=== PATIENT | male | born 1945 | race Caucasian/White ===

== ENCOUNTER 2017-11-12 07:22 | Day surgery (SDC) | payer MEDICARE, BC ==
[~2017-11-12] VITALS: Ht 167.6 cm; Wt 73.5 kg
--- NOTE | ~2017-11-12 | OP ---
PATIENT NAME: FARHEEN WOODS MEDICAL RECORD: [id number] :45 LOCATION:D[facility] ADMISSION DATE: SURGEON: MARS MCINTOSH MD DATE OF OPERATION: 11/12/2017 SURGEON: Mars Mcintosh MD ANESTHESIA: MAC by Fermin Fuentes CRNA. PREOPERATIVE DIAGNOSIS: Elevated PSA 6.75 on 08/19/2017. PROCEDURE: Transrectal ultrasound and prostate biopsy. FINDINGS: A 79 gram prostate, hypoechoic area in the mid basilar area anteriorly. SPECIMENS: Prostate biopsy cores. BLOOD LOSS: None. CLINICAL HISTORY: This is a 72-year-old male, who was referred with an elevated PSA of 6.75. This was a specimen from 08/19/2017. His PSA has been elevated above 4 for the past 3 years. His daughter has been trying with herbal medications to dock the PSA level on her own. Finally, he got too concerned about cancer and he sought medical attention. His brother had prostate cancer diagnosed at age 50. He comes today for a prostate transrectal ultrasound and biopsy. He is allergic to PENICILLIN. 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 DESCRIPTION OF PROCEDURE: The patient was given IV sedation. He was placed in the dorsal lithotomy position and prepped and draped. The transrectal ultrasound probe was introduced and the prostate size measurements were obtained at 79 grams. There was a hypoechoic area in the base of the prostate located anteriorly. We performed sextant biopsies with at least 3 cores from each sextant. Once all the specimens were obtained, the procedure was terminated. The patient was brought back to the preoperative holding area. I will review the pathology results with him next week. TRANSINT:[id number] Voice Confirmation ID: [id number] DOCUMENT ID: [id number] MARS MCINTOSH MD at 1547 CC: [id number] DICTATION DATE: 11/12/17 1119 PROPERTY MANAGEMENT SPECIALIST: 11/12/17 1410 [facility] 11/12/17 [place] [address]
[~2017-11-12 07:22] MED LIST: PRINIVIL20 MG PO
[2017-11-12 07:43] LABS: HEMATOCRIT 43.6 % (42.0-54.0); HEMOGLOBIN 15.5 g/dL (13.5-17.5); MCH 32.2 pg (26.0-34.0); MCHC 35.6 g/dL (31.0-37.0); MCV 90.6 fL (80.0-100.0); MEAN PLATELET VOLUME 8.8 fL (7.4-10.4); RBC 4.81 10x6/uL (4.20-6.10); RDW 12.4 % (11.5-14.5); WBC 5.8 10x3/uL (4.8-10.8)
[2017-11-12 08:42] VITALS: BP 136/76; Ht 167.6 cm; Wt 73.5 kg
== END 2017-11-12 12:45 | disposition home or self-care (01) ==
LOC: D.OPS 07:22 → D.PAN 09:45 → D.OPS 12:45
PROVIDERS: Anesthesiology
DX: R97.20 Elevated prostate specific antigen [PSA] (principal); Z01.812 Encounter for preprocedural laboratory examination

== ENCOUNTER 2019-06-08 21:44 | Inpatient (IN) | payer MEDICARE, BC ==
[~2019-06-08] VITALS: Ht 167.6 cm; Wt 69.9 kg
--- NOTE | 2019-06-08 22:27 | NUR ---
URINE SENT TO LAB
[2019-06-08 22:30] LABS: BASOPHILS 0.2 % (0-2); EOSINOPHILS 1.1 % (0-7); HEMATOCRIT 37.8 % (42.0-54.0); HEMOGLOBIN 12.9 g/dL (13.5-17.5); IMMATURE GRANULOCYTES 0.3 % (0-5); LYMPHOCYTES 21.9 % (15-50); MCH 30.1 pg (26.0-34.0); MCHC 34.1 g/dL (31.0-37.0); MCV 88.1 fL (80.0-100.0); MEAN PLATELET VOLUME 8.4 fL (7.4-10.4); MONOCYTES 7.7 % (2-11); NEUTROPHILS 68.8 % (40-80); RBC 4.29 10x6/uL (4.20-6.10); RDW 12.7 % (11.5-14.5); WBC 9.2 10x3/uL (4.8-10.8)
[2019-06-08 22:31] LABS: APPEARANCE CLEAR (CLEAR); COLOR YELLOW (YELLOW); NITRITE NEGATIVE (NEGATIVE); PROTEIN NEGATIVE (NEGATIVE); SPECIFIC GRAVITY 1.015 (1.005-1.020)
[2019-06-08 22:31] LABS: PLATELET COUNT 214 10x3/uL (130-400)
[2019-06-08 22:32] LABS: BILIRUBIN NEGATIVE (NEGATIVE); GLUCOSE NEGATIVE (NEGATIVE); KETONE NEGATIVE (NEGATIVE); UROBILINOGEN NORMAL (NORMAL)
[2019-06-08 22:35] LABS: ANION GAP 16.1 mmol/L (8-16); CALCIUM 8.4 mg/dL (8.5-10.1); CARBON DIOXIDE 23.4 mmol/L (21.0-32.0); CREATININE - SERUM 6.3 mg/dL (0.6-1.3); POTASSIUM - SERUM 4.5 mmol/L (3.5-5.1)
[2019-06-08 22:41] LABS: ALBUMIN 3.5 g/dL (3.4-5.0); BILIRUBIN - TOTAL 0.33 mg/dL (0.2-1.3); PROTEIN - SERUM 6.7 g/dL (6.4-8.2)
--- NOTE | 2019-06-08 23:43 | NUR ---
REPORT CALLED TO STONEY TILLMAN
[2019-06-08] MEDS ORDERED: ZOFRAN4 MG PO (23:59)
[2019-06-09 00:18] VITALS: BP 141/72
[2019-06-09 00:45] VITALS: BP 141/72; BMI 24.9
[2019-06-09 04:00] VITALS: BP 136/62
--- NOTE | 2019-06-09 04:07 | NUR ---
I have reviewed this patient and I concur with the Shift Assessment completed by the Licensed Practical Nurse today this shift.
[2019-06-09 07:08] LABS: BASOPHILS 0.2 % (0-2); HEMATOCRIT 34.9 % (42.0-54.0); HEMOGLOBIN 12.1 g/dL (13.5-17.5); IMMATURE GRANULOCYTES 0.1 % (0-5); MCH 30.3 pg (26.0-34.0); MCHC 34.7 g/dL (31.0-37.0); MCV 87.5 fL (80.0-100.0); MEAN PLATELET VOLUME 8.2 fL (7.4-10.4); NEUTROPHILS 71.7 % (40-80); PLATELET COUNT 185 10x3/uL (130-400); RBC 3.99 10x6/uL (4.20-6.10); RDW 12.8 % (11.5-14.5)
[2019-06-09 07:15] LABS: ANION GAP 14.7 mmol/L (8-16); CALCIUM 7.9 mg/dL (8.5-10.1); CARBON DIOXIDE 21.6 mmol/L (21.0-32.0); CREATININE - SERUM 5.9 mg/dL (0.6-1.3)
[2019-06-09 07:17] LABS: POTASSIUM - SERUM 5.3 mmol/L (3.5-5.1)
--- NOTE | 2019-06-09 07:36 | NUR ---
REPORT RECEIVED. WILL CONTINUE WITH POC. PT CURRENTLY LYING SUPINE. CALL LIGHT W/I REACH. FAMILY AT BEDSIDE. RR EVEN AND UNLABORED ON RA. NS INFUSING @100ML/HR VIA R.FOR PIV. NO S/S OF DISTRESS NOTED. PT DENIES ANY NEEDS. WILL CTM.
[2019-06-09 09:18] VITALS: BP 141/61
--- NOTE | 2019-06-09 10:00 | NUR ---
SPOKE WITH PT AND FAMILY ABOUT RECENT LABS AND REASONING BEHIND ADMININSTERING IV FLUIDS. VERBAL EDUCATION PROVIDED. SPOKE WITH 3 DIFFERENT FAMILY MEMBERS ABOUT THE SAME TOPIC AND TREATMENT PLAN. WHILE CHARTING AT DESK, FAMILY MEMBER OUTSIDE OF ROOM TALKING LOUDLY THAT "WEVE DONE ABSOLUTELY NOTHING TO HELP." WILL RELAY MESSAGE TO PHYSICIAN.
--- NOTE | 2019-06-09 11:23 | NUR ---
INCENTIVE SPIROMETER PROVIDED AND EDUCATION PROVIDED TO PT AND FAMILY ABOUT USE. PT STATES HE HAS HAD 4 LIQUID BOWEL MOVEMENTS THIS AM. CDT ORDERED. WILL COLLECT NEXT STOOL AND SEND OFF. WILL CTM.
[2019-06-09 12:56] LABS: % SATURATION 19 % (15-55); IRON 46 ug/dl (35-150); TOTAL IRON BIND CAPACITY 232 ug/dl (260-445); UNSAT IRON BIND CAPACITY 186 ug/dl (150-375)
[2019-06-09 13:46] VITALS: BP 159/77
--- NOTE | 2019-06-09 16:09 | NUR ---
I AGREE WITH THE ASSESSMENT OF THE COMMERCIAL AGENT ON STAFF
[2019-06-09 17:49] VITALS: BP 154/73
--- NOTE | 2019-06-09 19:10 | NUR ---
BEDSIDE REPORT RECEIVED FROM DAY SHIFT, PT CARE ASSUMED. INTRODUCED SELF AND WROTE NAME ON BOARD. PT LYING IN BED WITH EYES CLOSED, RR EVEN AND NONLABORED, NO S/S OF DISTRESS, AROUSES EASILY TO VOICE, ORIENTED X4. DENIES ANY NEEDS AT THIS TIME. BED IN LOWEST POSITION, SR X2, CALL LIGHT WITHIN REACH. WILL CONTINUE TO MONITOR.
[2019-06-10] VITALS: BP 137/65
--- NOTE | 2019-06-10 01:00 | NUR ---
PT AMBULATES TO RESTROOM. NO COMPLAINTS OF PAIN AT THIS TIME. ENCOURAGED PT TO CALL FOR HELP WHEN GOING TO THE RESTROOM. CALL LIGHT WITHIN REACH AND BED IN LOWEST POSITION. WILL CONTINUE TO MONITOR
[2019-06-10 04:00] VITALS: BP 177/84
[2019-06-10 06:35] LABS: BASOPHILS 0.3 % (0-2); EOSINOPHILS 0.9 % (0-7); HEMATOCRIT 33.6 % (42.0-54.0); HEMOGLOBIN 11.2 g/dL (13.5-17.5); IMMATURE GRANULOCYTES 0.1 % (0-5); LYMPHOCYTES 19.9 % (15-50); MCH 29.9 pg (26.0-34.0); MCHC 33.3 g/dL (31.0-37.0); MEAN PLATELET VOLUME 8.6 fL (7.4-10.4); MONOCYTES 5.9 % (2-11); NEUTROPHILS 72.9 % (40-80); PLATELET COUNT 184 10x3/uL (130-400); RBC 3.74 10x6/uL (4.20-6.10); RDW 12.8 % (11.5-14.5); WBC 7.6 10x3/uL (4.8-10.8)
[2019-06-10 06:53] LABS: ANION GAP 13.1 mmol/L (8-16); CALCIUM 8.2 mg/dL (8.5-10.1); CARBON DIOXIDE 23.1 mmol/L (21.0-32.0); CREATININE - SERUM 5.5 mg/dL (0.6-1.3); POTASSIUM - SERUM 5.2 mmol/L (3.5-5.1)
[2019-06-10 06:57] LABS: MCV 89.8 fL (80.0-100.0)
[2019-06-10 07:13] LABS: PH - STOOL 6.5 (7.0-7.5)
--- NOTE | 2019-06-10 07:15 | NUR ---
REPORT RECEIVED. WILL CONTINUE WITH POC. PT CURRENTLY LYING ON RIGHT SIDE RESTING. CALL LIGHT W/I REACH. PT IS ASLEEP WITH EYES CLOSED AT THIS TIME. RR EVEN AND UNLABORED ON RA. NS INFUSING @100ML/HR VIA R.FOR PIV. NO S/S OF DISTRESS NOTED. WILL CTM.
[2019-06-10 09:19] VITALS: BP 143/70
--- NOTE | 2019-06-10 12:07 | NUR ---
PVD SCAN COMPLETE AND RECORDED 0ML RETAINING. 1800ML URINE OUTPUT RECORDED THIS MORNING. ABX CURRENTLY INFUSING WITH NS INFUSING @100ML/HR VIA R.FOR PIV. PT DENIES ANY NEEDS. WILL CTM.
[2019-06-10 13:29] VITALS: BP 128/66
--- NOTE | 2019-06-10 16:18 | MORECARE ---
CASE MANAGEMENT DISCHARGE SUMMARY PATIENT: FARHEEN WOODS UNIT: [id number] ADM DATE: 06/08/19 AGE: 74 : 45 SEX: M ROOM/BED: D.2136 AUTHOR: SOTERO SAUCEDO PHYSICIAN: REFERRING PHYSICIAN: BROOKS ENGLAND MD DATE OF SERVICE: 06/10/19 Discharge Plan Patient Name: FARHEEN WOODS Facility: [facility]:[place] : 1945 Planned Disposition: Home Anticipated Discharge Date: Discharge Date: Expected LOS: Initial Reviewer: [email or web address] Initial Review Date: 06/10/2019 Generated: 06/10/19 5:18 pm DCPIA - Discharge Planning Initial Assessment Updated by [email or web address]: Michelle George on 06/10/19 4:18 pm * Is the patient Alert and Oriented? Yes * PCP KEMAR * Pharmacy [facility] IN [place] * Preadmission Environment Home with Family * ADLs Independent * Additional services required to return to the preadmission environment? No * Can the patient safely return to the preadmission environment? Yes * Has this patient been hospitalized within the prior 30 days at any hospital? No Coverage Notice Reviewer: [id number] - Michelle George Notice Issued Date-Time: 06/10/2019 16:17 Notice Type: IM Discharge Notice Notice Delivered To: Patient Relationship to Patient: Development Coach Name: Delivery Method: HAND - Hand Delivered Mary Days: Prior Verbal Notification: Recipient Understood Notice: Yes Recipient Signature: Yes Med Rec Note Co-signed by Attending: Coverage Notice Comment: Patient Name: FARHEEN WOODS Page [id number] at 1618 All edits/amendments must be made on the electronic document DICTATION DATE: 06/10/191617 CRM MARKETING EXECUTIVE: BENITA 06/10/191617 RPT#: [id number] DC DATE: STATUS: ADM IN [facility] [address] [place] [address] END OF REPORT
--- NOTE | 2019-06-10 16:27 | MORECARE ---
CASE MANAGEMENT DISCHARGE SUMMARY PATIENT: FARHEEN WOODS UNIT: [id number] ADM DATE: 06/08/19 AGE: 74 : 45 SEX: M ROOM/BED: D.2136 AUTHOR: SHERYLDOC PHYSICIAN: REFERRING PHYSICIAN: BROOKS ENGLAND MD DATE OF SERVICE: 06/10/19 Discharge Plan Patient Name: FARHEEN WOODS Facility: [facility]:[place] : 1945 Planned Disposition: Home Anticipated Discharge Date: Discharge Date: Expected LOS: Initial Reviewer: [email or web address] Initial Review Date: 06/10/2019 Generated: 06/10/19 5:26 pm Comments DCP- Discharge Planning Updated by [id number]: Michelle George on 06/10/19 3:[address] Patient Name: FARHEEN WOODS Admission Status: ER Accout number: [id number] Admission Date: 06-08-2019 : 1945 Admission Diagnosis: Attending: BROOKS ENGLAND Current LOS: 2 Anticipated DC Date: Planned Disposition: Home Primary Insurance: MEDICARE A & B Discharge Planning Comments: CM MET WITH PATIENT AFTER OBTAINING VERBAL CONSENT. STATES PLANS TO DC TO HOME. DENIES NEEDS FOR HH, REHAB OR EQUIPMENT. ANTICIPATES DC TODAY OR TOMORROW. IMM SIGNED. CM TO FOLLOW AND ASSIST. Dental Insurance Biller: Michelle George DCPIA - Discharge Planning Initial Assessment Updated by [id number]: Michelle George on 06/10/19 4:18 pm * Is the patient Alert and Oriented? Yes * PCP KEMAR * Pharmacy [facility] IN [place] * Preadmission Environment Home with Family * ADLs Independent * Additional services required to return to the preadmission environment? No * Can the patient safely return to the preadmission environment? Yes * Has this patient been hospitalized within the prior 30 days at any hospital? No Coverage Notice Reviewer: [id number] - Michelle George Notice Issued Date-Time: 06/10/2019 16:17 Notice Type: IM Discharge Notice Notice Delivered To: Patient Relationship to Patient: Care Manager Cna Name: Delivery Method: HAND - Hand Delivered Mary Days: Prior Verbal Notification: Recipient Understood Notice: Yes Recipient Signature: Yes Med Rec Note Co-signed by Attending: Coverage Notice Comment: Last DP export: 06/10/19 3:18 p Patient Name: FARHEEN WOODS Page [phone] at 1627 All edits/amendments must be made on the electronic document DICTATION DATE: 06/10/191626 TOP PRECIPITATOR OPERATOR: BENITA 06/10/191626 RPT#: [id number] DC DATE: STATUS: ADM IN [facility] [address] [place] [address] END OF REPORT
[2019-06-10 18:37] VITALS: BP 132/71
[2019-06-10 20:00] VITALS: BP 122/68
--- NOTE | 2019-06-10 20:00 | NUR ---
PT SITTING IN IN CHAIR, WITH FAMILY AT BEDSIDE. NO SIGNS OR SYMPTOMS OF DISTRESS NOTED. RESPIRATIONS EVEN AND UNLABORED. ON ROOM AIR. UP AID SONA. CONTINENT OF BOWELL AND BLADDER. BOWELL SOUNDS ACTIVE x4. PT STATES THAT LAST BOWELL MOVEMENT WAS EAILER TODAY. ABDOMEN IS FLAT AND SOFT TO PALPATION. VOID x1. NO COMPLAINT OF PAIN AT THIS TIME. HAND GRISP ARE STRONG AND EQUAL. PT ENCOURAGE TO CALL FOR HELP WHEN GETTING IN AND OUT OF BED. CALL LIGHT IS WITHIN REACH AND BED IS IN LOWEST POSITION. WILL CONTINUE TO MONITOR
[2019-06-11] VITALS: BP 143/70
[2019-06-11 04:00] VITALS: BP 130/60
[2019-06-11 06:03] LABS: BASOPHILS 0.3 % (0-2); EOSINOPHILS 1.1 % (0-7); HEMATOCRIT 33.1 % (42.0-54.0); HEMOGLOBIN 11.2 g/dL (13.5-17.5); IMMATURE GRANULOCYTES 0.2 % (0-5); LYMPHOCYTES 28.6 % (15-50); MCH 30.4 pg (26.0-34.0); MCHC 33.8 g/dL (31.0-37.0); MCV 89.9 fL (80.0-100.0); MEAN PLATELET VOLUME 8.7 fL (7.4-10.4); MONOCYTES 6.1 % (2-11); NEUTROPHILS 63.7 % (40-80); PLATELET COUNT 157 10x3/uL (130-400); RBC 3.68 10x6/uL (4.20-6.10); WBC 6.4 10x3/uL (4.8-10.8)
[2019-06-11 06:19] LABS: ANION GAP 15.7 mmol/L (8-16); CALCIUM 8.1 mg/dL (8.5-10.1); CARBON DIOXIDE 21.1 mmol/L (21.0-32.0); CREATININE - SERUM 4.7 mg/dL (0.6-1.3); POTASSIUM - SERUM 4.8 mmol/L (3.5-5.1)
--- NOTE | 2019-06-11 07:08 | NUR ---
I have reviewed this patient and I concur with the Shift Assessment completed by the Licensed Practical Nurse today this shift.
--- NOTE | 2019-06-11 07:26 | NUR ---
PT AWAKE AND ORIENTED, UP TO BATHROOM WITHOUT ASSISTANCE. NO COMPLAINTS/CONCERNS ALL QUESTIONS ANSWERED TO THE BEST OF MY ABILITY. HOPING TO GO HOME TODAY. CL IN REACH, SRX2.
[2019-06-11 08:53] VITALS: BP 160/78
[2019-06-11 12:09] VITALS: BP 189/78
--- NOTE | 2019-06-11 14:59 | NUR ---
I have reviewed this patient and I concur with the Shift Assessment completed by the Licensed Practical Nurse today this shift.
[2019-06-11 16:52] VITALS: BP 179/92
--- NOTE | 2019-06-11 17:17 | NUR ---
PT AWAKE AND ORIENTED, HAS MULTIPLE FAMIY MEMBERS AT BEDSIDE.NO COMPLAINTS OR CONCERNS AT THIS TIME. CL INR EACH, SRX2.
[2019-06-11 20:00] VITALS: BP 134/66
--- NOTE | 2019-06-11 20:07 | NUR ---
RECEIVED UP IN BED WITH EYES OPEN. ALERT AND ORIENTED X4. UP AD SONA TO B/R. IV TO RIGHT FA WITH NS AT 100CC/HR. DSG CLEAN DRY AND INTACT.LUNG SOUNDS CLEAR BILATERALLY. BSX4Q. NO EDEMA OBSERVED. DENIES ANY NEEDS .
[2019-06-12] VITALS (7 sets, daily range): BP systolic 121–180; BP diastolic 51–77
[2019-06-12 07:09] LABS: BASOPHILS 0.5 % (0-2); HEMATOCRIT 33.1 % (42.0-54.0); HEMOGLOBIN 11.1 g/dL (13.5-17.5); IMMATURE GRANULOCYTES 0.2 % (0-5); LYMPHOCYTES 27.6 % (15-50); MCHC 33.5 g/dL (31.0-37.0); MCV 89.5 fL (80.0-100.0); MONOCYTES 6.1 % (2-11); NEUTROPHILS 64.6 % (40-80); PLATELET COUNT 175 10x3/uL (130-400); RDW 12.8 % (11.5-14.5)
--- NOTE | 2019-06-12 07:15 | NUR ---
PT RESTING PEACEFULLY, LYING ON SIDE IN BED. NO FAMILY AT BEDSIDE. BREATHS EVEN/REGULAR AND UNLABORED. NO SINGS OR SYMPTOMS OF ACUTE DISTRESS NOTED AT THIS TIME. CL IN REACH, SRX2.
[2019-06-12 07:17] LABS: ANION GAP 12.7 mmol/L (8-16); CALCIUM 7.9 mg/dL (8.5-10.1); CARBON DIOXIDE 22.8 mmol/L (21.0-32.0); CREATININE - SERUM 4.3 mg/dL (0.6-1.3); POTASSIUM - SERUM 4.5 mmol/L (3.5-5.1)
--- NOTE | 2019-06-12 07:20 | NUR ---
PT AWAKE AND ORIENTED, SITTING ON SIDE OF BED RECIEVING BREATHING TX. DAUGHTER AT BEDSIDE. DRAY TRUCK DRIVER NURSE REPORTED THAT THE FAMILY HAD CONCERNS THAT THE PT MISSED A DOSE OF STERIODS YESTERDAY D/T HOW LONG IT TOOK ME TO REPLACE AN IV AFTER THE PTS WENT BAD. EXPLAINED TO THE PT AND DAUGHTER THAT I COULD NOT HAVE BACK DOSED THE STERIOD REGARDLESS BECAUSE IT WAS IMPOSSIBLE TO TELL HOW MUCH OF THE MEDICATION THE PT HAD RECEIVED BEOFRE HER I/V STARTED LEAKING. THE PT AND DAUGHTER VERBALIZE UNDERSTANDING. CL IN REACH, SRX2.
--- NOTE | 2019-06-12 09:45 | NUR ---
I have reviewed this patient and I concur with the Shift Assessment completed by the Licensed Practical Nurse today this shift.
--- NOTE | 2019-06-12 16:56 | NUR ---
PT AWAKE AND ORIENTED, SITTIN GUP FOR SUPPER. ATE SOME ICE CREAM, BUT OTHERIWISE HAS LITTLE APPITITE. WILL EVALUATE AFTER SUPPER TO SEE IF THE MEGACE HELPS AT ALL. FAMILY HAS BEEN IN AND OUT OF ROOM ALL DAY, DAUGHTER AT BEDSIDE RIGHT NOW. NO COPMLAINTS/CONCERNS AT THIS TIME, ALL QUESTIONS ANSWERED. CL IN REACH, SRX2
--- NOTE | 2019-06-12 19:13 | NUR ---
RECEIVED LAYING IN BED WITH EYES OPEN. ALERT AND ORIENTED X4. UP AD SONA TO B/R. IV TO RIGHT FA WITH NS AT 100CC/HR. DENIES ANY NEEDS AT THIS TIME.
[2019-06-13 04:39] VITALS: BP 116/77
[2019-06-13 05:28] LABS: BASOPHILS 0.3 % (0-2); EOSINOPHILS 1.4 % (0-7); HEMATOCRIT 33.6 % (42.0-54.0); HEMOGLOBIN 11.3 g/dL (13.5-17.5); IMMATURE GRANULOCYTES 0.2 % (0-5); LYMPHOCYTES 32.9 % (15-50); MCH 30.1 pg (26.0-34.0); MCHC 33.6 g/dL (31.0-37.0); MCV 89.6 fL (80.0-100.0); MEAN PLATELET VOLUME 9.3 fL (7.4-10.4); NEUTROPHILS 59.2 % (40-80); PLATELET COUNT 161 10x3/uL (130-400); RBC 3.75 10x6/uL (4.20-6.10); RDW 12.8 % (11.5-14.5); WBC 5.9 10x3/uL (4.8-10.8)
[2019-06-13 05:47] LABS: ANION GAP 13.3 mmol/L (8-16); CALCIUM 7.9 mg/dL (8.5-10.1); CARBON DIOXIDE 22.3 mmol/L (21.0-32.0); CREATININE - SERUM 3.9 mg/dL (0.6-1.3); PHOSPHOROUS 4.2 mg/dL (2.5-4.9); POTASSIUM - SERUM 4.6 mmol/L (3.5-5.1)
--- NOTE | 2019-06-13 07:30 | NUR ---
REPORT RECIEVED. PT SITTING UP IN BED. RR EVEN AND UNLABORED. PT HAS A R FA PIV INFUSING PLASMA LITE @ 75. BED LOCKED AND IN LOWEST POSITION, CALL LIGHT WITHIN REACH. WILL CTM
[2019-06-13 08:43] VITALS: BP 175/76
[2019-06-13 12:29] VITALS: BP 143/77
[2019-06-13 14:48] VITALS: Ht 167.6 cm; Wt 69.9 kg
--- NOTE | 2019-06-13 15:53 | NUR ---
I have reviewed this patient and I concur with the Shift Assessment completed by the Licensed Practical Nurse today this shift.
[2019-06-13 17:35] VITALS: BP 175/74
[2019-06-13 20:00] VITALS: BP 187/81
--- NOTE | 2019-06-13 20:01 | NUR ---
RECEIVED LAYING IN BED WITH EYES OPEN. ALERT AND ORIENTED X4. UP AD SONA TO B/R. IV TO RIGHT FA WITH PLASMOLYTE INFUSING At 75CC/HR. REMAINS ON ROOM AIR. DENIES ANY NEEDS AT THIS TIME.
[2019-06-14 04:00] VITALS: BP 124/67
[2019-06-14 06:15] LABS: BASOPHILS 0.3 % (0-2); HEMATOCRIT 31.7 % (42.0-54.0); HEMOGLOBIN 10.8 g/dL (13.5-17.5); IMMATURE GRANULOCYTES 0.2 % (0-5); LYMPHOCYTES 29.7 % (15-50); MCH 30.3 pg (26.0-34.0); MCHC 34.1 g/dL (31.0-37.0); MCV 88.8 fL (80.0-100.0); MEAN PLATELET VOLUME 9.3 fL (7.4-10.4); MONOCYTES 5.4 % (2-11); NEUTROPHILS 63.4 % (40-80); PLATELET COUNT 168 10x3/uL (130-400); RBC 3.57 10x6/uL (4.20-6.10); RDW 12.8 % (11.5-14.5); WBC 5.7 10x3/uL (4.8-10.8)
[2019-06-14 06:44] LABS: ANION GAP 14.5 mmol/L (8-16); CALCIUM 7.7 mg/dL (8.5-10.1); CARBON DIOXIDE 22.8 mmol/L (21.0-32.0); CREATININE - SERUM 3.3 mg/dL (0.6-1.3); POTASSIUM - SERUM 4.3 mmol/L (3.5-5.1); URIC ACID 7.2 mg/dL (2.6-7.2)
--- NOTE | 2019-06-14 08:37 | NUR ---
BEDSIDE SHIFT REPORT COMPLETE. PATIENT IS SITTING UP IN BED EATTING BREAKFAST. DAUGHTER IS VISITING. PATIENT IS ALERT AND AWAKE AND DENIES ANY NEEDS AT THIS TIME.
--- NOTE | 2019-06-14 09:58 | NUR ---
CALLED DR MCINTOSH ABOUT THE CONSULT.
[2019-06-14 10:01] VITALS: BP 128/83
[2019-06-14 13:04] VITALS: BP 102/58
[2019-06-14] MEDS ORDERED: NORVASC5 MG PO (15:58)
[2019-06-14] MEDS ORDERED: FLOMAX0.4 MG PO (16:03)
--- NOTE | 2019-06-14 16:32 | NUR ---
UPON ADMIT, NO FLU SHOT WAS NOTED. WHEN QUESTIONED UPON ADMIT, PATIENT STATES THAT HE HAD ONE IN 2019.
--- NOTE | 2019-06-14 16:40 | MORECARE ---
CASE MANAGEMENT DISCHARGE SUMMARY PATIENT: FARHEEN WOODS UNIT: [id number] ADM DATE: 06/08/19 AGE: 74 : 45 SEX: M ROOM/BED: D.2136 AUTHOR: SHERYLDOC PHYSICIAN: REFERRING PHYSICIAN: BROOKS ENGLAND MD DATE OF SERVICE: 06/14/19 Discharge Plan Patient Name: FARHEEN WOODS Facility: [facility]:[place] : 1945 Planned Disposition: Home Anticipated Discharge Date: 06/14/19 Discharge Date: Expected LOS: 6 Initial Reviewer: [id number] Initial Review Date: 06/10/2019 Generated: 06/14/19 5:40 pm Comments DCP- Discharge Planning Updated by [id number]: Segundo Tong on 06/14/19 3:[address] Patient Name: FARHEEN WOODS Encounter No: [id number] : 1945 Primary Insurance: MEDICARE A & B Anticipated DC Date: 06-14-2019 Planned Disposition: Home: DCP follow-up note: CM MET WITH PT IN ROOM TO DISCUSS DISCHARGE NEEDS AND PLANNING. CM DISCUSSED AVAILABILITY OF HOME HEALTH, REHAB SERVICES AND MEDICAL EQUIPMENT. PT DENIES DISCHARGE NEEDS. DAUGHTER TO TRANSPORT HOME AT DISCHARGE. IMPORTANT MESSAGE FROM MEDICARE PROVIDED AND EXPLAINED. ARTIFICIAL FLOWERS SUPERVISOR NURSE NOTIFIED. JD Cerda DCP- Discharge Planning Updated by [id number]: Michelle George on 06/10/19 3:[address] Patient Name: FARHEEN WOODS Admission Status: ER Accout number: [id number] Admission Date: 06-08-2019 : 1945 Admission Diagnosis: Attending: BROOKS ENGLAND Current LOS: 2 Anticipated DC Date: Planned Disposition: Home Primary Insurance: MEDICARE A & B Discharge Planning Comments: CM MET WITH PATIENT AFTER OBTAINING VERBAL CONSENT. STATES PLANS TO DC TO HOME. DENIES NEEDS FOR HH, REHAB OR EQUIPMENT. ANTICIPATES DC TODAY OR TOMORROW. IMM SIGNED. CM TO FOLLOW AND ASSIST. Skein Washer: Michelle George DCPIA - Discharge Planning Initial Assessment Updated by [id number]: Michelle George on 06/10/19 4:18 pm * Is the patient Alert and Oriented? Yes * PCP KEMAR * Pharmacy [facility] IN [place] * Preadmission Environment Home with Family * ADLs Independent * Additional services required to return to the preadmission environment? No * Can the patient safely return to the preadmission environment? Yes * Has this patient been hospitalized within the prior 30 days at any hospital? No Coverage Notice Reviewer: [id number] Neda George Notice Issued Date-Time: 06/10/2019 16:17 Notice Type: IM Discharge Notice Notice Delivered To: Patient Relationship to Patient: Assistant Signal Maintainer Name: Delivery Method: HAND - Hand Delivered Mary Days: Prior Verbal Notification: Recipient Understood Notice: Yes Recipient Signature: Yes Med Rec Note Co-signed by Attending: Coverage Notice Comment: Reviewer: [id number] - Segundo Tong Notice Issued Date-Time: 06/14/2019 16:34 Notice Type: IM Discharge Notice Notice Delivered To: Patient Relationship to Patient: Assistant Signal Maintainer Name: Delivery Method: HAND - Hand Delivered Mary Days: Prior Verbal Notification: Recipient Understood Notice: Yes Recipient Signature: Yes Med Rec Note Co-signed by Attending: Coverage Notice Comment: Last DP export: 06/10/19 3:27 p Patient Name: FARHEEN WOODS Page [id number] at 1640 All edits/amendments must be made on the electronic document DICTATION DATE: 06/14/19 1640 PSYCHOTHERAPIST: BENITA 06/14/19 1640 RPT#: [id number] DC DATE: STATUS: ADM IN [facility] [address] [place] [address] END OF REPORT
--- NOTE | 2019-06-14 18:09 | NUR ---
IV REMOVED WITH CATHETER INTACT. PATIENT IS GOING HOME WITH FAMILY. HE IS GOING DOWNSTAIRS ON FOOT, AND REQUEST TO GO ON FOOT. ALL DISCHARGE TEACHING IS DONE AND PAPERS SIGNED. ALL PATIENT BELONGINGS WENT WITH THE PATIENT.
[2019-06-14 20:07] LABS: OVA + PARASITE EXAM Final report (())
== END 2019-06-14 18:11 | disposition home or self-care (01) | DRG 391 ==
LOC: D.ER 21:44 → D.M2 23:30
PROVIDERS: Emergency Medicine; Internal Medicine Nephrology; ADMIT Internal Medicine Nephrology; ATTEND Internal Medicine Nephrology
DX: A09 Infectious gastroenteritis and colitis, unspecified (principal); N17.0 Acute kidney failure with tubular necrosis; N13.8 Other obstructive and reflux uropathy; D64.9 Anemia, unspecified; E87.5 Hyperkalemia; I10 Essential (primary) hypertension; N40.1 Benign prostatic hyperplasia with lower urinary tract symptoms; E86.0 Dehydration